=== PATIENT | female | born 1970 | race African-American/Black ===

== ENCOUNTER → 2020-12-31 10:26 | Outpatient (BNVA) | payer SELFPAY | PROVIDERS: Visit Provider Nurse Practitioner Family | DX: Z20.822 Contact with and (suspected) exposure to COVID-19 (principal) | CPT/HCPCS: 87635 ==

== ENCOUNTER 2022-04-19 09:13 | Outpatient (CLI) | payer MEDICAID, SELFPAY ==
--- NOTE | 2022-04-19 09:44 | XR_ITS ---
WS: [id number] XR hand LT min 3V* [id number] REASON FOR EXAM: L HAND JOINT PAIN FINDINGS: No fracture or focal bone lesion. There is mild narrowing of the DIP joints, of the second through the fifth fingers, with mild subchon dral sclerosis and small marginal osteophytosis. Similar arthropathic change involves the joints of t he thumb. There are no erosions or periosteal reaction. No soft tissue abnormality. 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
--- NOTE | 2022-04-19 09:52 | XRR_ITS ---
PROCEDURE INFORMATION: Exam: XR Right Hand Exam date and time: 04/19/2022 9:56 AM Age: 51 years old Clinical indication: Pain; Hand; Right; Additional info: Right hand joint pain TECHNIQUE: Imaging protocol: Radiologic exam of the Right hand. Views: 3 or more views. COMPARISON: No relevant prior studies available. FINDINGS: Bones/joints: No fracture, dislocation or other acute bone or joint abnormality. Mild chronic degenerative changes are present with joint space narrowing and tiny osteophytes predominantly in the interphalangeal joint of the thumb and in the DIP joints. Soft tissues: Normal. XR/XR hand RT min 3V* [id number] IMPRESSION: Mild chronic degenerative joint disease. No acute abnormality.
--- NOTE | 2022-04-19 09:52 | XRR_ITS ---
PROCEDURE INFORMATION: Exam: XR Lumbosacral Spine Exam date and time: 04/19/2022 9:56 AM Age: 51 years old Clinical indication: Low back pain; Additional info: Vertebrogenic low back pain TECHNIQUE: Imaging protocol: Radiologic exam of the lumbosacral spine. Views: 6 or more views. Including flexion and extension views. COMPARISON: No relevant prior studies available. FINDINGS: Bones/joints: No fracture, malalignment or acute abnormality is seen in the lumbar spine. Mild scattered degenerative changes are present with small osteophytes and disc space narrowing. There is sclerosis in the lumbar facet joints. Soft tissues: Unremarkable. XR/XR lumbar spine 6V w f/e [id number] IMPRESSION: Mild chronic degenerative changes. No acute abnormality.
== END 2022-04-19 09:14 | disposition home or self-care (01) ==
PROVIDERS: PCP Family Medicine; Visit Provider Family Medicine
DX: M54.51 Vertebrogenic low back pain (principal); M19.042 Primary osteoarthritis, left hand; M19.041 Primary osteoarthritis, right hand
CPT/HCPCS: 72114; 73130

== ENCOUNTER 2022-08-09 09:26 | Outpatient (RCR) | payer MEDICAID, SELFPAY | END 2022-09-07 23:59 | disposition home or self-care (01) | LOC: SPT 09:26 | PROVIDERS: PCP Family Medicine; Visit Provider Family Medicine | DX: M54.9 Dorsalgia, unspecified (principal); G89.29 Other chronic pain | CPT/HCPCS: 97161 ==

== ENCOUNTER 2022-09-08 06:00 | Outpatient (RCR) | payer MEDICAID, SELFPAY | END 2022-09-21 23:59 | disposition home or self-care (01) | LOC: SPT 06:00 | PROVIDERS: PCP Family Medicine; Visit Provider Family Medicine | DX: M54.9 Dorsalgia, unspecified (principal); G89.29 Other chronic pain | CPT/HCPCS: 97110 ==

== ENCOUNTER 2024-05-12 18:40 | Emergency (ER) | payer OTHER, SELFPAY ==
[2024-05-12 18:47] VITALS: BP 136/81; PULSE 78; RESP 16; TEMP 36.7; O2SAT 99; BMI 25.8
--- NOTE | 2024-05-12 18:52 | ECG_ITS ---
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 Measurements Intervals Jerome Rate: 73 P: 74 MN: 148 QRS: 81 QRSD: 93 T: 70 QT: 380 QTc: 421 Interpretive Statements SINUS RHYTHM No previous ECG available for comparison Electronically Signed On 05-16-2024 22:10:21 BIOLOGICAL ENGINEER by Azam Kim M.D. [email or web address]
--- NOTE | 2024-05-12 18:54 | XRR_ITS ---
PROCEDURE INFORMATION: Exam: XR Chest Exam date and time: 05/12/2024 7:05 PM Age: 53 years old Clinical indication: Shortness of breath TECHNIQUE: Imaging protocol: Radiologic exam of the chest. Views: 1 view. COMPARISON: No relevant prior studies available. FINDINGS: Lungs: Unremarkable. No consolidation. Pleural spaces: Unremarkable. No pleural effusion. No pneumothorax. Heart/Mediastinum: Unremarkable. No cardiomegaly. Bones/joints: Unremarkable. XR/XR chest 1V portable [id number] IMPRESSION: No acute findings.
--- NOTE | 2024-05-12 19:01 | W.ED.SOB ---
HPI - SOB/Dyspnea General: Chief Complaint: Shortness of Breath/Dyspnea Stated Complaint: High BP Time Seen by Provider: 05/12/24 18:57 History of Present Illness: HPI Narrative: 53-year-old female who normally takes no medications other than gabapentin and Ambien who presents to the emergency room with hypertension and some mild shortness of breath. She said she had a funny feeling. She felt a little bit short of breath. She checked her blood pressure and it was 160/99. She checked it again later and it was still slightly elevated. She had taken one of her husbands lisinopril. No chest pain. No abdominal pain. No nausea or vomiting. No cough. She has had a bit of a headache she says. She has had some cold feelings in her hands and feet. [place] clammy. Related Data Home Medications Medication Instructions Recorded Confirmed gabapentin 300 mg capsule 300 mg PO DAILY 12/31/20 12/31/20 zolpidem 5 mg tablet (Ambien) 5 mg PO DAILY 12/31/20 12/31/20 Allergies Allergy/AdvReac Type Severity Reaction Status Date / Time No Known Allergies Allergy Verified 05/12/24 18:52 Review of Systems Narrative: Constitutional symptoms: Negative except as documented in HPI. Skin symptoms: Negative except as documented in HPI. Eye symptoms: Negative except as documented in HPI. ENMT symptoms: Negative except as documented in HPI. Respiratory symptoms: Negative except as documented in HPI. Cardiovascular symptoms: Negative except as documented in HPI. Gastrointestinal symptoms: Negative except as documented in HPI. Genitourinary symptoms: Negative except as documented in HPI. Musculoskeletal symptoms: Negative except as documented in HPI. Neurologic symptoms: Negative except as documented in HPI. Psychiatric symptoms: Negative except as documented in HPI. Endocrine symptoms: Negative except as documented in HPI. [facility] PFSH: Social History (Updated 12/31/20 @ 09:52 by Mona Duke NP) Smoking and tobacco/nicotine status: current every day tobacco/nicotine user Physical Exam Narrative: EXAM NARRATIVE: General: Alert, no acute distress. Skin: Warm, dry. Head: Normocephalic, atraumatic. Neck: Supple, trachea midline. Eye: Extraocular movements are intact. Ears, nose, mouth and throat: mucosa moist. Cardiovascular: Regular, Normal peripheral perfusion. Respiratory: Lungs are clear to auscultation, respirations are non-labored, breath sounds are equal, Symmetrical chest wall expansion. Gastrointestinal: Soft, Nontender, Non distended Musculoskeletal: Normal ROM, no deformity. Neurological: Alert and oriented, No focal neurological deficit observed. Psychiatric: Cooperative, appropriate mood & affect. Course Vital Signs: Vital signs: Vital Signs Temperature 98.1 F 05/12/24 18:47 Pulse Rate 74 05/12/24 19:14 Respiratory Rate 16 05/12/24 18:47 Blood Pressure 142/100 05/12/24 19:14 Pulse Oximetry 97 05/12/24 19:14 Oxygen Delivery Me thod Room Air 05/12/24 19:14 MDM - SOB/Dyspnea Medical Decision Making Differential diagnosis for patient with shortness of breath includes but is not limited to and based on the above HPI, review of systems and physical exam: Pneumonia. Bronchitis. Asthma or COPD with acute exacerbation. Acute coronary syndrome / [place]. Pulmonary embolism. Anxiety. Congestive heart failure. Viral infections including influenza and Covid-19. Atrial fibrillation. Anxiety. Pleural effusion. Pneumothorax. Orders placed to evaluate differential diagnosis based on the above differential, HPI and physical exam EKG: Time 1852. Rate 73. Normal sinus rhythm, No ST-T changes, no ectopy, normal OH & QRS intervals, This was reviewed and interpreted by myself the ER physician at 1858. Chest x-ray: No acute process. No infiltrate. No pneumothorax. This was reviewed and interpreted by myself the emergency room physician. I also reviewed the radiology report. Lab Review: Laboratory results were reviewed and interpreted by myself the emergency room physician. No leukocytosis. No anemia. No renal failure. Troponin is negative. Flu COVID and RSV are negative. I reviewed the patient's medical record. Reexamination: Patient remained stable. No increased work of breathing. No altered mental status. No focal motor deficits. Assessment and plan: Hypertension - Discharged home - Discussed plan with patient. Answered any questions. - Evaluation and treatment of this problem were appropriate in the emergency setting. Lab Data 05/12/24 19:05 05/12/24 19:05 Labs/Radiology: Laboratory Results WBC 9.66 10^3/uL (3.29-11.43) 05/12/24 19:05 RBC 4.55 10^6/uL (3.85-5.65) 05/12/24 19:05 Hgb 12.70 g/dL (11.27-16.99) 05/12/24 19:05 Hct 40.3 % (36-47) 05/12/24 19:05 MCV 88.6 fl (85-98) 05/12/24 19:05 MCH 27.9 pg (27-33) 05/12/24 19:05 MCHC 31.5 g/dL (30-55) 05/12/24 19:05 RDW 14.0 % (12.1-15.1) 05/12/24 19:05 Plt Count 248 10^3/cmm (157-399) 05/12/24 19:05 MPV 10.6 fL (7.4-10.4) H 05/12/24 19:05 Neut % (Auto) 51.6 % 05/12/24 19:05 Lymph % (Auto) 37.9 % 05/12/24 19:05 [place] % (Auto) 7.0 % 05/12/24 19:05 Eos % (Auto) 2.5 % 05/12/24 19:05 Baso % (Auto) 0.8 % 05/12/24 19:05 Neut # (Auto) 4.98 10^3/uL (1.8-7.7) 05/12/24 19:05 Lymph # (Auto) 3.7 10^3/uL (0.8-4.8) 05/12/24 19:05 [place] # (Auto) 0.7 10^3/uL (0.2-0.9) 05/12/24 19:05 Eos # (Auto) 0.2 10^3/uL (0.0-0.8) 05/12/24 19:05 Baso # (Auto) 0.1 10^3/uL (0.0-0.1) 05/12/24 19:05 Nucleated RBC % (auto) 0 % 05/12/24 19:05 Nucleated RBCs # 0.0 /100WBC 05/12/24 19:05 Sodium 141 mmol/L (136-145) 05/12/24 19:05 Potassium 3.6 mmol/L (3.5-5.1) 05/12/24 19:05 Chloride 104 mmol/L (98-107) 05/12/24 19:05 Carbon Dioxide 23 mmol/L (22-29) 05/12/24 19:05 Anion Gap 17.6 (5-19) 05/12/24 19:05 BUN 13 mg/dL (6-20) 05/12/24 19:05 Creatinine 0.7 mg/dL (0.5-0.9) 05/12/24 19:05 GFR Calculation 106.7 mL/min (90-130) 05/12/24 19:05 Glucose 104 mg/dL (65-115) 05/12/24 19:05 Calculated Osmolality 292 mOsm/kg (285-295) 05/12/24 19:05 Calcium 9.2 mg/dL (8.5-10.5) 05/12/24 19:05 Total Bilirubin 0.2 mg/dL (0.15-1.2) 05/12/24 19:05 AST 16 U/L (0-32) 05/12/24 19:05 ALT 12 U/L (0-33) 05/12/24 19:05 Alkaline Phosphatase 106 U/L (35-105) H 05/12/24 19:05 Troponin T Baseline < 6 ng/L (0-10) 05/12/24 19:05 NT-Pro-B Natriuret Pep 50 pg/mL (0-125) 05/12/24 19:05 Total Protein 6.6 g/dL (6.6-8.7) 05/12/24 19:05 Albumin 4.2 g/dL (3.5-5.2) 05/12/24 19:05 Globulin 2.4 g/dL (1.3-4.6) 05/12/24 19:05 Coronavirus (PCR) Negative (Negative) 05/12/24 19:05 Influenza A (PCR) Negative (Negative) 05/12/24 19:05 Influenza Type B (PCR) Negative (Negative) 05/12/24 19:05 RSV (PCR) Negative (Negative) 05/12/24 19:05 All radiology interpretation(s) finalized by discharge Discharge Plan Discharge Patient Disposition: Home Clinical Impression: Hypertension Condition: Stable Prescriptions: No Action gabapentin 300 mg capsule 300 mg PO DAILY zolpidem [Ambien] 5 mg tablet 5 mg PO DAILY Discharge Orders: Discharge ED (Routine); Ordered 05/12/24 Ordered By: Jennifer Caraballo Referrals: Liseth Mas DO [Primary Care Provider] - Discharge Diet: Usual diet Discharge Activity: Increase activity as tolerated Patient Instructions: Opioid Safety, Pain Management Activity Restrictions/Additional Instructions: Thank you for choosing [facility] for your healthcare needs today. Please realize this is an emergency room and that we are providing you with a medical screening exam and this may not be complete and all inclusive of all the testing and or work up that you may need to determine your ailment or severity of your illness. You have been screened and evaluated and felt safe for discharge. Health conditions do change or evolve sometimes and as such it is important that you follow up with your Primary Doctor to be re checked, 3-5 days is a general good time frame for follow up. You are always welcome to return to the ED for re assessment if your symptoms are worsening or you have new concerns Coding Level of Care Code ED Criminal Investigator for Lauren Webster
[2024-05-12 19:14] VITALS: BP 142/100; PULSE 74; O2SAT 97
[2024-05-12 19:17] LABS: Basophils # 0.1 10^3/uL (0.0-0.1); Basophils % 0.8 %; Eosinophils # 0.2 10^3/uL (0.0-0.8); Eosinophils % 2.5 %; Hematocrit 40.3 % (36-47); Lymphocytes # 3.7 10^3/uL (0.8-4.8); Lymphocytes % 37.9 %; Mean Corpuscular HGB Conc 31.5 g/dL (30-55); Mean Corpuscular Hemoglobin 27.9 pg (27-33); Mean Corpuscular Volume 88.6 fl (85-98); Mean Platelet Volume 10.6 fL (7.4-10.4); Monocytes # 0.7 10^3/uL (0.2-0.9); Neutrophils # 4.98 10^3/uL (1.8-7.7); Neutrophils % 51.6 %; Nucleated Red Blood Cells % 0 %; Platelet Count 248 10^3/cmm (157-399); Red Blood Count 4.55 10^6/uL (3.85-5.65); White Blood Count 9.66 10^3/uL (3.29-11.43)
[2024-05-12 19:41] LABS: Troponin(5th) Baseline < 6 ng/L (0-10)
[2024-05-12 19:51] LABS: Alanine Aminotransferase 12 U/L (0-33); Albumin Level 4.2 g/dL (3.5-5.2); Alkaline Phosphatase 106 U/L (35-105); Anion Gap 17.6 (5-19); Aspartate Amino Transferase 16 U/L (0-32); Blood Urea Nitrogen 13 mg/dL (6-20); Calcium 9.2 mg/dL (8.5-10.5); Carbon Dioxide 23 mmol/L (22-29); Chloride 104 mmol/L (98-107); Creatinine Clr Calc Pharmacy 100.4122; Globulin 2.4 g/dL (1.3-4.6); Glomerular Filtration Rate 106.7 mL/min (90-130); Glucose 104 mg/dL (65-115); NT Pro B Type Natriuretic Pept 50 pg/mL (0-125); Osmolality Calculated 292 mOsm/kg (285-295); Potassium 3.6 mmol/L (3.5-5.1); Sodium 141 mmol/L (136-145); Total Bilirubin 0.2 mg/dL (0.15-1.2); Total Protein 6.6 g/dL (6.6-8.7)
[2024-05-12 19:56] LABS: Covid PCR NEGATIVE (Negative); Influenza A NEGATIVE (Negative); Influenza B NEGATIVE (Negative); Respiratory Syncytial Virus Ce NEGATIVE (Negative)
[2024-05-12 20:00] VITALS: BP 136/88; PULSE 66; O2SAT 99
[2024-05-12 20:15] VITALS: BP 134/72; PULSE 74; O2SAT 99
== END 2024-05-12 20:16 | disposition home or self-care (01) ==
PROVIDERS: Emergency Provider Emergency Medicine; PCP Family Medicine
DX: I10 Essential (primary) hypertension (principal); Z11.52 Encounter for screening for COVID-19; Z72.0 Tobacco use
CPT/HCPCS: 71045; 80053; 83880; 84484; 85025; 87637; 93005; 99285